=== PATIENT | female | born 1950 | race Caucasian/White ===

== ENCOUNTER 2024-08-24 09:14 | Inpatient (IN) ==
[2024-08-24] MEDS: Dextrose 50% Syringe 50 ml 25 GM/50 ML SYRINGE IV PUSH PRN (09:37)
[2024-08-24] MEDS: Lactated Ringers 1000 ml BAG 1,000 ML IV ONE (09:37)
[2024-08-24 10:21] LABS: Hematocrit 21.7 % (35-45); Hemoglobin 6.9 g/dL (11.5-14.3); Mean Corpuscular Hemoglobin 20.9 pg (27-33); Mean Corpuscular Hgb Conc 31.9 g/dL (31-36); Mean Corpuscular Volume 65.6 fL (80-97); Mean Platelet Volume 7.4 fL (7.5-11.2); Platelet Count 699 10^3/uL (150-450); Red Cell Distribution Width 20.4 % (12-17); White Blood Count 13.3 10^3/uL (3.8-11.8)
[2024-08-24 10:35] LABS: ALT 25 U/L (7-52); Albumin 3.8 g/dL (3.5-5.7); Albumin/Globulin Ratio 1.3 (1-3); Alkaline Phosphatase 84 U/L (35-149); Anion Gap 11 mmol/L (2-16); Blood Urea Nitrogen 35 mg/dL (6-24); CO2 Carbon Dioxide 25 mmol/L (22-32); Chloride 95 mmol/L (101-111); Creatine Kinase 1355 U/L (10-223); Creatinine, Serum 1.47 mg/dL (0.51-0.95); Glucose 290 mg/dL (70-100); Sodium 131 mmol/L (135-145); Total Bilirubin 0.7 mg/dL (0.2-1.0); Total Protein 6.8 g/dL (6.4-8.9); eGFR CKD-EPI 37.5 (>60)
[2024-08-24 10:40] LABS: High Sens Troponin Baseline 17 pg/mL (<15)
[2024-08-24 10:49] LABS: ABS Lymphocytes 1.6 10^3/uL (1.0-4.8); ABS Monocytes 1.2 10^3/uL (0.0-0.9); ABS Neutrophils 10.4 10^3/uL (1.5-7.6); ABS Nucleated RBC 0.01 10^3/ul; Eosinophil % 0.2 %; Hypochromasia 1+; Lymphocyte % 12.1 %; Microcytosis 3+; Nucleated Red Blood Cells % 0.1 %/100WBC (0.0-0.8)
[2024-08-24] MEDS: Iodixanol 320 (CONTRAST) 100 ML SDV IV ONE (11:17)
[2024-08-24 11:25] LABS: Potassium Redraw 4.4 mmol/L (3.5-5.0)
[2024-08-24 13:13] LABS: Urine Appearance Clear; Urine Bilirubin Negative (Negative); Urine Blood Trace (Negative); Urine Color Light-Yellow; Urine Glucose Negative (Negative); Urine Ketones Negative (Negative); Urine Nitrite Negative (Negative); Urine Protein Trace (Negative); Urine Specific Gravity 1.038 (1.002-1.030); Urine Urobilinogen Negative (Negative); Urine pH 5.5 (5.0-8.0)
[2024-08-24] MEDS ORDERED: Dextrose 50% Syringe 50 ml 25 GM/50 ML SYRINGE ONE (14:25)
[2024-08-24] MEDS: D10W 500 ml BAG 500 ML IV SCH (14:26)
[2024-08-24 17:07] LABS: TSH Ultra Thyroid Stim Horm 1.52 mcIU/mL (0.34-5.60)
[2024-08-24 17:14] LABS: .Transferrin 369 mg/dL (203-362); Total Iron Binding Capacity 517 mcg/dL (250-450)
[2024-08-24 17:19] LABS: Folate > 20.00 ng/mL (5.90-24.80)
[2024-08-24 17:20] LABS: Vitamin B12 341 pg/mL (180-914)
[2024-08-24] MEDS ORDERED: Dextrose 50% Syringe 50 ml 25 GM/50 ML SYRINGE IV PUSH PRN (19:14)
[2024-08-24] MEDS: Ferric Gluconate IV 125 MG in NS 0.9% 100 ml BAG 100 ML IVPB ONE (21:17)
[2024-08-24] MEDS: Nystatin TOP POWDER 15 GM BTL TOPICAL SCH (21:25)
[2024-08-24] MEDS: Ferric Gluconate IV 250 MG in NS 0.9% 250 ml 200 ML IVPB SCH (22:31)
[2024-08-25 00:01] LABS: Hematocrit 24.5 % (35-45); Hemoglobin 7.8 g/dL (11.5-14.3)
[2024-08-25 06:32] LABS: ABS Eosinophils 0.3 10^3/uL (0.0-0.5); ABS Lymphocytes 3.4 10^3/uL (1.0-4.8); ABS Neutrophils 9.6 10^3/uL (1.5-7.6); ABS Nucleated RBC 0.01 10^3/ul; Eosinophil % 2.1 %; Hematocrit 27.9 % (35-45); Hemoglobin 8.9 g/dL (11.5-14.3); Lymphocyte % 23.9 %; Mean Corpuscular Hemoglobin 21.3 pg (27-33); Mean Corpuscular Hgb Conc 31.7 g/dL (31-36); Mean Corpuscular Volume 67.1 fL (80-97); Mean Platelet Volume 6.8 fL (7.5-11.2); Nucleated Red Blood Cells % 0.1 %/100WBC (0.0-0.8); Platelet Count 602 10^3/uL (150-450); Red Blood Count 4.16 10^6/uL (3.63-4.92); Red Cell Distribution Width 20.6 % (12-17); White Blood Count 14.4 10^3/uL (3.8-11.8)
[2024-08-25 06:53] LABS: Calcium 9.3 mg/dL (8.6-10.3); Creatinine, Serum 1.18 mg/dL (0.51-0.95); Magnesium 1.8 mg/dL (1.9-2.7); Potassium 4.3 mmol/L (3.5-5.0); eGFR CKD-EPI 48.8 (>60)
[2024-08-25] MEDS: Pantoprazole VIAL 40 MG VIAL IV SCH (08:04)
[2024-08-25] MEDS: Magnesium Sulfate 2 gm BAG 2 GM/50 ML BAG IVPB ONE (08:04)
[2024-08-25] MEDS: DULoxetine DR 60 mg CAP PO SCH (08:05)
[2024-08-25 10:08] LABS: HDL Cholesterol 70.6 mg/dL
[2024-08-25] MEDS ORDERED: Dextrose 50% Syringe 50 ml 25 GM/50 ML SYRINGE IV PUSH PRN (12:11)
[2024-08-26 06:03] LABS: ABS Eosinophils 0.4 10^3/uL (0.0-0.5); ABS Lymphocytes 1.8 10^3/uL (1.0-4.8); ABS Monocytes 1.2 10^3/uL (0.0-0.9); ABS Neutrophils 7.5 10^3/uL (1.5-7.6); ABS Nucleated RBC 0.01 10^3/ul; Eosinophil % 3.9 %; Hematocrit 24.4 % (35-45); Hemoglobin 8.1 g/dL (11.5-14.3); Lymphocyte % 16.4 %; Mean Corpuscular Volume 66.7 fL (80-97); Mean Platelet Volume 6.9 fL (7.5-11.2); Nucleated Red Blood Cells % 0.1 %/100WBC (0.0-0.8); Platelet Count 483 10^3/uL (150-450); Red Blood Count 3.66 10^6/uL (3.63-4.92); Red Cell Distribution Width 20.1 % (12-17); White Blood Count 10.9 10^3/uL (3.8-11.8)
[2024-08-26 06:14] LABS: Calcium 9.3 mg/dL (8.6-10.3); Creatinine, Serum 0.99 mg/dL (0.51-0.95); Magnesium 1.9 mg/dL (1.9-2.7); Potassium 4.3 mmol/L (3.5-5.0); eGFR CKD-EPI 60.2 (>60)
[2024-08-26] MEDS: Magnesium Sulfate 2 gm BAG 2 GM/50 ML BAG IVPB ONE (10:00)
[2024-08-26 17:46] VITALS: BP 163/77
[2024-08-31] MEDS ORDERED: Alendronate 70 mg TAB (NF) PO SCH (08:00)
== END 2024-08-26 20:10 | disposition home or self-care (01) | DRG 638 ==
LOC: ED 09:14 → EDHOLD 15:40 → MED 16:43
PROVIDERS: ADMIT Internal Medicine; ATTEND Internal Medicine

== ENCOUNTER 2024-09-15 10:07 | Observation (INO) ==
[2024-09-15 11:25] LABS: Hematocrit 28.2 % (35-45); Hemoglobin 9.2 g/dL (11.5-14.3); Mean Corpuscular Hemoglobin 24.5 pg (27-33); Mean Corpuscular Hgb Conc 32.8 g/dL (31-36); Mean Corpuscular Volume 74.8 fL (80-97); Mean Platelet Volume 6.5 fL (7.5-11.2); Platelet Count 459 10^3/uL (150-450); Red Blood Count 3.77 10^6/uL (3.63-4.92); Red Cell Distribution Width 30.7 % (12-17); White Blood Count 10.1 10^3/uL (3.8-11.8)
[2024-09-15 11:39] LABS: Albumin 3.8 g/dL (3.5-5.7); Albumin/Globulin Ratio 1.3 (1-3); Calcium 9.8 mg/dL (8.6-10.3); Creatinine, Serum 1.01 mg/dL (0.51-0.95); Potassium 4.2 mmol/L (3.5-5.0); Total Bilirubin 0.5 mg/dL (0.2-1.0); Total Protein 6.8 g/dL (6.4-8.9); eGFR CKD-EPI 58.8 (>60)
[2024-09-15 12:14] LABS: ABS Eosinophils 0.2 10^3/uL (0.0-0.5); ABS Lymphocytes 0.8 10^3/uL (1.0-4.8); ABS Monocytes 0.6 10^3/uL (0.0-0.9); ABS Neutrophils 8.5 10^3/uL (1.5-7.6); Eosinophil % 1.9 %; Lymphocyte % 7.9 %
[2024-09-15] MEDS: Iodixanol 320 (CONTRAST) 100 ML SDV IV ONE (18:57)
[2024-09-15 20:02] LABS: High Sensitivity Troponin 1 Hr 8 pg/mL (<15)
[2024-09-16] MEDS: cefTRIAXone 1 gm/50 mL D5W 1 GM/50 ML BAG IV ONE (00:35)
[2024-09-16] MEDS: Azithromycin 500 mg/250 ml NS 500 MG/250 ML BAG IVPB ONE (00:49)
[2024-09-16] MEDS ORDERED: Ondansetron 4 mg VIAL 2 MG/ML 2 ml VIAL IV PRN (01:59)
[2024-09-16 05:56] LABS: Hematocrit 26.8 % (35-45); Hemoglobin 8.6 g/dL (11.5-14.3); Mean Corpuscular Hemoglobin 24.1 pg (27-33); Mean Corpuscular Hgb Conc 32.2 g/dL (31-36); Mean Corpuscular Volume 74.6 fL (80-97); Mean Platelet Volume 6.5 fL (7.5-11.2); Platelet Count 416 10^3/uL (150-450); Red Blood Count 3.59 10^6/uL (3.63-4.92); Red Cell Distribution Width 30.5 % (12-17); White Blood Count 6.4 10^3/uL (3.8-11.8)
[2024-09-16 06:30] LABS: Calcium 8.9 mg/dL (8.6-10.3); Creatinine, Serum 0.91 mg/dL (0.51-0.95); Magnesium 1.2 mg/dL (1.9-2.7); Potassium 3.8 mmol/L (3.5-5.0); eGFR CKD-EPI 66.6 (>60)
[2024-09-16 07:19] LABS: ABS Eosinophils 0.4 10^3/uL (0.0-0.5); ABS Lymphocytes 1.1 10^3/uL (1.0-4.8); ABS Monocytes 0.6 10^3/uL (0.0-0.9); ABS Neutrophils 4.4 10^3/uL (1.5-7.6); Eosinophil % 5.5 %; Lymphocyte % 17.1 %
[2024-09-16] MEDS ORDERED: Losartan/HCTZ 100/25 TAB (NF) PO SCH (09:00)
[2024-09-16] MEDS: Enoxaparin 40 MG/0.4 ML SYR SUBCUT SCH (10:04)
[2024-09-16] MEDS: DULoxetine DR 60 mg CAP PO SCH (10:10)
[2024-09-16] MEDS: Magnesium Sulf 4 GM/100 ML IV 4,000 MG/100 ML BAG IVPB ONE (14:50)
[2024-09-16 17:31] LABS: Ferritin 250.6 ng/mL (11-307)
[2024-09-16 17:35] LABS: Folate 14.54 ng/mL (5.90-24.80)
[2024-09-17] MEDS: cefTRIAXone 1 gm/50 mL D5W 1 GM/50 ML BAG IV SCH (00:15)
[2024-09-17] MEDS: Azithromycin 500 mg/250 ml NS 500 MG/250 ML BAG IVPB SCH (01:15)
[2024-09-17 06:14] LABS: Hematocrit 28.9 % (35-45); Hemoglobin 9.3 g/dL (11.5-14.3); Mean Corpuscular Hemoglobin 24.4 pg (27-33); Mean Corpuscular Hgb Conc 32.3 g/dL (31-36); Mean Corpuscular Volume 75.4 fL (80-97); Mean Platelet Volume 6.9 fL (7.5-11.2); Platelet Count 448 10^3/uL (150-450); Red Blood Count 3.83 10^6/uL (3.63-4.92); Red Cell Distribution Width 29.9 % (12-17); White Blood Count 7.6 10^3/uL (3.8-11.8)
[2024-09-17 06:32] LABS: Calcium 9.1 mg/dL (8.6-10.3); Creatinine, Serum 0.86 mg/dL (0.51-0.95); Potassium 4.3 mmol/L (3.5-5.0); eGFR CKD-EPI 71.3 (>60)
[2024-09-17 08:20] LABS: ABS Eosinophils 0.3 10^3/uL (0.0-0.5); ABS Lymphocytes 0.9 10^3/uL (1.0-4.8); ABS Monocytes 0.6 10^3/uL (0.0-0.9); ABS Neutrophils 5.8 10^3/uL (1.5-7.6); Anisocytosis 2+; Hypochromasia 1+; Lymphocyte % 11.3 %; Microcytosis 1+
[2024-09-17 08:38] LABS: Magnesium 1.7 mg/dL (1.9-2.7)
[2024-09-17] MEDS: Magnesium Sulfate 2 gm BAG 2 GM/50 ML BAG IVPB ONE (12:33)
[2024-09-18 17:11] LABS: TSH Ultra Thyroid Stim Horm 0.49 mcIU/mL (0.34-5.60)
[2024-09-19] MEDS: cefTRIAXone ADVAN VIAL 1 GM in NS 0.9% 50 ML 50 ML IV SCH (00:09)
[2024-09-19 06:32] LABS: Calcium 9.8 mg/dL (8.6-10.3); Creatinine, Serum 0.96 mg/dL (0.51-0.95); Potassium 4.1 mmol/L (3.5-5.0); eGFR CKD-EPI 62.5 (>60)
[2024-09-19] MEDS: Magnesium Sulfate 2 gm BAG 2 GM/50 ML BAG IVPB ONE (08:44)
[2024-09-19] MEDS: Magnesium Sulfate IV 1GM/100ML 1 GM/100 ML BAG IV ONE (09:53)
[2024-09-19 10:16] VITALS: BP 161/103
== END 2024-09-19 11:15 | disposition home or self-care (01) ==
LOC: EDHOLD 10:07 → ED 10:07 → MEDTELE 09-16 11:59
PROVIDERS: ADMIT Internal Medicine; ATTEND Student in an Organized Health Care Education/Training Program